=== PATIENT | male | born 1950 | race Caucasian/White ===

== ENCOUNTER 2020-12-14 09:56 | Outpatient (CLI) | payer BC, SELFPAY ==
--- NOTE | ~2020-12-14 | NM_ITS ---
EXAMINATION: NM alexei stress w perfusion DATE: 12/14/2020 12:37 INDICATION: Unspecified right bundle branch block. TECHNIQUE: Rest images were obtained following intravenous administration of 9.1 mCi Tc99m tetrofosmi n (Myoview). The patient was infused intravenously with Lexiscan (regadenoson). Then, 31.1 mCi Tc99m tetrofosmin (Myoview) was administered intravenously, and supine and prone stress images were obtaine d. Data was reconstructed into short axis and horizontal and vertical long axis SPECT images. Gated S PECT images were also obtained. COMPARISON: Myocardial perfusion imaging 03/14/2017 FINDINGS: There is no definite reversible or fixed perfusion abnormality to suggest ischemia or infar ction. There is no segmental wall motion abnormality. Left ventricular ejection fraction measures 6 1%. IMPRESSION: 1. No definite ischemia or infarct. 2. Normal left ventricular ejection fraction measuring 61%. Reviewed, dictated and finalized at location A. H INSPECTOR
--- NOTE | 2020-12-14 11:20 | EST_ITS ---
Patient Info Name: Dakotah Carlson Age: 70 years : 1950 Gender: Male Ht: 69 in Wt: 210 lbs BSA: 2.18 m2 Exam Date: 12/14/2020 11:26 AM Exam Location: [facility] Stress Patient Status: Outpatient Admit Date: 12/14/2020 Staff Ordering Physician: Alta Hernandez PAC Attending Provider: Alta Hernandez Exercise Technologist: Mathew Perez RDCS, RT Exercise Physician: Carlos Marin DO Exam Type: CA stress alexei w NM Study Info A regadenoson stress test was performed. Summary 1. 1. Negative lexiscan stress test for ischemic ST changes by ECG criteria. 2. 2. Stable hemodynamics throughout the test. 3. 3. Nuclear scan to follow and will be reported separately. Please correlate with it. 4. 4. Patient informed of the above results. Protocol: Lexiscan Stress ECG Details Stage: REST Duration (min): 3 min : 29 sec HR (bpm): 62 SBP (mmHg): 136 DBP (mmHg): 87 Stage: REST Duration (min): 5 min : 25 sec HR (bpm): 62 SBP (mmHg): 136 DBP (mmHg): 87 Stage: STAGE 1 Duration (min): 1 min : 0 sec HR (bpm): 70 SBP (mmHg): 128 DBP (mmHg): 94 Stage: RECOVERY Duration (min): 1 min : 0 sec HR (bpm): 74 SBP (mmHg): 128 DBP (mmHg): 94 Stage: RECOVERY Duration (min): 2 min : 0 sec HR (bpm): 71 SBP (mmHg): 128 DBP (mmHg): 94 Stage: RECOVERY Duration (min): 3 min : 0 sec HR (bpm): 67 SBP (mmHg): 131 DBP (mmHg): 91 Stage: RECOVERY Duration (min): 3 min : 19 sec HR (bpm): 69 SBP (mmHg): 131 DBP (mmHg): 91 Rest HR: 62 bpm Peak HR: 75 bpm Rest Sys BP: 136 mmHg Peak Sys BP: 131 mmHg Max Pred HR: 151 bpm % Max Pred HR: 50 % Target HR: 128 bpm Max RPP: 9,825 bpm*mmHg Termination Reason: Completed protocol Cardiac Symptoms: Shortness of breath Total Time: 1 min : 0 sec Rest Castillo BP: 87 mmHg Peak Castillo BP: 91 mmHg Total Dose: 0.4 mg Resting ECG Sinus rhythm with supraventricular bigeminy, RBBB, cannot r/o septal infarct, ST-T wave abnormality in anterolat/inf leads- consider ischemia. Stress ECG No ST changes. Arrhythmias None. Report Signatures
== END 2020-12-14 09:57 | disposition home or self-care (01) ==
PROVIDERS: Family Provider Family Medicine; PCP Family Medicine; Visit Provider Physician Assistant Medical
DX: I45.10 Unspecified right bundle-branch block (principal); R07.89 Other chest pain
CPT/HCPCS: 78452; 93017; A9502; J2785

== ENCOUNTER 2021-03-16 09:02 | Outpatient (CLI) | payer BC, SELFPAY ==
--- NOTE | ~2021-03-16 | US_ITS ---
US abdomen complete EXAMINATION: US Abdomen Complete INDICATION: Thrombocytopenia PROCEDURE: Realtime High Resolution abdomen ultrasound. COMPARISON: No prior studies for comparison FINDINGS: Gallbladder within normal limits. No gallstones, pericholecystic fluid, gallbladder wall t hickening or biliary dilatation. Common bile duct measures 5 mm. Liver echotexture within normal limits without focal mass. Pancreas within normal limits. Pancreati c tail is obscured by bowel gas. Spleen is borderline size measuring 12.8 cm. There are calcified gr anulomas of the spleen.. Renal echotexture is within normal limits bilaterally without hydronephrosis , contour deforming mass or renal stone. Right kidney measures 11.1 cm. Left kidney measures 11.9 cm. There is a 1.9 cm left renal cyst. Visualized aspects of the aorta and IVC are within normal limits. Portal vein is patent. No sonograph ic Perez's sign indicated by the technologist. IMPRESSION: 1: Left renal cyst measuring 1.9 cm. Reviewed, dictated and finalized at location B.
== END 2021-03-16 09:03 | disposition home or self-care (01) ==
PROVIDERS: PCP Family Medicine; Visit Provider Internal Medicine Hematology & Oncology
DX: D69.59 Other secondary thrombocytopenia (principal); N28.1 Cyst of kidney, acquired
CPT/HCPCS: 76700

== ENCOUNTER 2021-08-31 10:14 | Outpatient (CLI) | payer BC, SELFPAY ==
[2021-08-31 10:45] LABS: Basophils Percent Auto 0.4 % (0.2-1.2); Eosinophils Absolute Auto 0.1 K/mm3 (0-0.3); Eosinophils Percent Auto 2.4 % (0-4.4); Hemoglobin 15.7 g/dL (14.0-18.0); Immature Granulocyte Absolute 0.01 K/mm3 (0.00-0.031); Immature Granulocyte Percent A 0.2 % (0-0.5); Immature Platelet Fraction Pct 5.6 % (0.9-11.2); Lymphocytes Absolute Auto 0.91 K/mm3 (0.9-3.2); Lymphocytes Percent Auto 16.7 % (18.3-44.2); Mean Corpuscular HGB Conc 35.7 g/dl (32-36); Mean Corpuscular Hemoglobin 33.3 pg (26-34); Mean Corpuscular Volume 93.4 fl (80-100); Mean Platelet Volume 10.8 fl (7.4-10.4); Monocytes Absolute Auto 0.4 K/mm3 (0.1-0.6); Monocytes Percent Auto 8.1 % (2.6-8.5); Neutrophils Absolute Auto 3.9 K/mm3 (1.3-6.7); Neutrophils Percent Auto 72.2 % (45.5-73.1); Platelet Count Result 116 k/mm3 (150-375); Red Blood Count 4.71 M/mm3 (4.6-6.20); Red Cell Distribution Width 12.6 % (11.5-14.5); White Blood Count 5.4 K/mm3 (4.5-10.0)
[2021-08-31 10:59] LABS: Alanine Aminotransferase 35 U/L (4-50); Albumin Level 4.4 g/dL (3.5-5.1); Alkaline Phosphatase 59 U/L (38-126); Anion Gap 9 mmol/L (8-16); Aspartate Amino Transferase 34 U/L (17-59); Bilirubin,Total 0.7 mg/dL (0.2-1.3); Blood Urea Nitrogen 21 mg/dL (9-20); Carbon Dioxide 24 mmol/L (22-30); Chloride 109 mmol/L (98-107); Estimated Glomerular Filt Rate > 60; Glucose 99 mg/dL (65-110); Potassium 4.2 mmol/L (3.4-5.0); Sodium 142 mmol/L (137-145)
[2021-08-31 12:01] LABS: Folic Acid 16.6 ng/mL (2.76->20)
== END 2021-08-31 10:15 | disposition home or self-care (01) ==
PROVIDERS: PCP Family Medicine; Visit Provider Internal Medicine Hematology & Oncology
DX: D69.59 Other secondary thrombocytopenia (principal)
CPT/HCPCS: 36415; 80053; 82607; 82746; 85025; 85055

== ENCOUNTER 2021-12-30 08:47 | Outpatient (CLI) | payer BC, MEDICARE, SELFPAY ==
--- NOTE | ~2021-12-30 | XR_ITS ---
EXAMINATION: XR chest 2V DATE: 12/30/2021 09:09 INDICATION: Cough, unspecified. TECHNIQUE: Frontal and lateral views of the chest were obtained. COMPARISON: CT abdomen and pelvis 05/10/2006 FINDINGS: There are airspace opacities in the lower lung zones. No pleural effusion or pneumothorax. Cardiomegaly is noted. IMPRESSION: 1. Airspace opacities in the lower lung zones, consistent with atelectasis versus pneumonia. 2. Cardiomegaly. Reviewed, dictated and finalized at location E. 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 Airspace opacities in the lower lung zones, consistent with atelectasis vers us pneumonia. 2. Cardiomegaly.
== END 2021-12-30 08:48 | disposition home or self-care (01) ==
LOC: ANHIMG 08:56
PROVIDERS: PCP Family Medicine; Visit Provider Nurse Practitioner Family
DX: R05.9 Cough, unspecified (principal); J40 Bronchitis, not specified as acute or chronic; R91.8 Other nonspecific abnormal finding of lung field; I51.7 Cardiomegaly
CPT/HCPCS: 71046

== ENCOUNTER 2022-01-09 08:49 | Outpatient (CLI) | payer MEDICARE, SELFPAY ==
--- NOTE | ~2022-01-09 | XR_ITS ---
XR chest 2V 01/09/2022 08:57 Indication: Pneumonia. Procedure: 2 view chest Comparison: 12/30/2021 Findings: There are bibasilar infiltrates, unchanged from prior examination which may represent atele ctasis/scarring versus pneumonia. No pleural effusion. Heart size normal. No pneumothorax. No acute o sseous abnormality. Impression: 1: Stable bilateral infiltrates of the lower lungs, atelectasis/scarring versus pneumonia. Reviewed, dictated and finalized at location B. 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
== END 2022-01-09 08:50 | disposition home or self-care (01) ==
LOC: ANHIMG 08:50
PROVIDERS: PCP Family Medicine; Visit Provider Nurse Practitioner Family
DX: J18.9 Pneumonia, unspecified organism (principal); R91.8 Other nonspecific abnormal finding of lung field
CPT/HCPCS: 71046

== ENCOUNTER 2022-07-19 08:22 | Outpatient (CLI) | payer MEDICARE, SELFPAY ==
[2022-07-19 08:41] LABS: Hematocrit 47.1 % (42.0-52.0); Hemoglobin 16.5 g/dL (14.0-18.0); Mean Corpuscular Hemoglobin 32.7 pg (26-34); Mean Corpuscular Volume 93.3 fl (80-100); Mean Platelet Volume 10.7 fl (7.4-10.4); Platelet Count Result 108 k/mm3 (150-375); Red Blood Count 5.05 M/mm3 (4.6-6.20); Red Cell Distribution Width 13.4 % (11.5-14.5); White Blood Count 5.5 K/mm3 (4.5-10.0)
[2022-07-19 08:53] LABS: Alanine Aminotransferase 30 U/L (6-50); Albumin Level 4.1 g/dL (3.5-5.1); Alkaline Phosphatase 54 U/L (38-126); Anion Gap 10 mmol/L (8-16); Aspartate Amino Transferase 28 U/L (17-59); Bilirubin,Total 0.7 mg/dL (0.2-1.3); Blood Urea Nitrogen 24 mg/dL (9-20); Calcium 8.9 mg/dL (8.4-10.2); Carbon Dioxide 25 mmol/L (22-30); Chloride 107 mmol/L (98-107); Cholesterol 172 mg/dL (0-200); Estimated Glomerular Filt Rate > 60; Glucose 115 mg/dL (65-110); HDL Direct 44 mg/dL; Potassium 4.7 mmol/L (3.4-5.0); Sodium 142 mmol/L (137-145); Triglycerides 103 mg/dL (<150)
[2022-07-19 09:03] LABS: LDL Cholesterol Direct 100 mg/dL
[2022-07-19 09:23] LABS: Prostate Specific Antigen 1.8 ng/mL (< OR = 4.0)
[2022-07-19 09:32] LABS: Free T4 Free Thyroxine 1.07 ng/mL (0.78-2.19); Vitamin D 25 Hydroxy 43.8 ng/mL
== END 2022-07-19 08:23 | disposition home or self-care (01) ==
LOC: ANHLAB 08:24
PROVIDERS: PCP Family Medicine; Visit Provider Nurse Practitioner Family
DX: E78.2 Mixed hyperlipidemia (principal); G47.33 Obstructive sleep apnea (adult) (pediatric); I10 Essential (primary) hypertension; R73.09 Other abnormal glucose; E56.9 Vitamin deficiency, unspecified; Z12.5 Encounter for screening for malignant neoplasm of prostate
CPT/HCPCS: 36415; 80053; 80061; 82306; 84153; 84439; 84443; 85027; 85055; G0103

== ENCOUNTER 2022-10-08 16:24 | Outpatient (CLI) | payer MEDICARE, SELFPAY ==
--- NOTE | ~2022-10-08 | XR_ITS ---
XR chest 2V 10/08/2022 16:38 Indication: Cough and congestion. Procedure: 2 view chest Comparison: 01/09/2022 Findings: Heart size normal. No focal air space disease, pulmonary edema, pleural effusion or suspect ed pneumothorax. No acute osseous abnormality. Impression: 1: No acute cardiopulmonary disease. Reviewed, dictated and finalized at location B. ER STRAIGHTENER Impression: 1: No acute cardiopulmonary disease.
== END 2022-10-08 16:25 | disposition home or self-care (01) ==
LOC: ANHIMG 16:26
PROVIDERS: PCP Family Medicine; Visit Provider Nurse Practitioner Family
DX: R05.9 Cough, unspecified (principal)
CPT/HCPCS: 71046

== ENCOUNTER 2023-08-29 12:42 | Outpatient (CLI) | payer MEDICARE, SELFPAY ==
[2023-08-29 12:59] LABS: Basophils Percent Auto 0.3 % (0.2-1.2); Eosinophils Absolute Auto 0.2 K/mm3 (0-0.3); Eosinophils Percent Auto 2.4 % (0-4.4); Hemoglobin 16.9 g/dL (14.0-18.0); Immature Granulocyte Absolute 0.01 K/mm3 (0.00-0.031); Immature Granulocyte Percent A 0.2 % (0-0.5); Immature Platelet Fraction Pct 5.1 % (0.9-11.2); Lymphocytes Percent Auto 32.3 % (18.3-44.2); Mean Corpuscular HGB Conc 35.2 g/dl (32-36); Mean Corpuscular Hemoglobin 32.7 pg (26-34); Mean Corpuscular Volume 92.8 fl (80-100); Mean Platelet Volume 10.7 fl (7.4-10.4); Monocytes Absolute Auto 0.8 K/mm3 (0.1-0.6); Monocytes Percent Auto 12.3 % (2.6-8.5); Neutrophils Absolute Auto 3.3 K/mm3 (1.3-6.7); Neutrophils Percent Auto 52.5 % (45.5-73.1); Platelet Count Result 113 k/mm3 (150-375); Red Blood Count 5.17 M/mm3 (4.6-6.20); Red Cell Distribution Width 12.7 % (11.5-14.5); White Blood Count 6.2 K/mm3 (4.5-10.0)
[2023-08-29 13:03] LABS: Blood Urea Nitrogen 19 mg/dL (8-26); Carbon Dioxide 25 mmol/L (22-30); Chloride 104 mmol/L (98-109); Estimated Glomerular Filt Rate > 60; Glucose 99 mg/dL (70-105); Ionized Calcium (POC) 1.18 mmol/L (1.11-1.31); Potassium 4.5 mmol/L (3.5-4.9); Sodium 140 mmol/L (138-146)
[2023-08-29 16:49] LABS: Alanine Aminotransferase 41 U/L (6-50); Albumin Level 4.3 g/dL (3.5-5.1); Alkaline Phosphatase 58 U/L (38-126); Anion Gap 6 mmol/L (8-16); Aspartate Amino Transferase 36 U/L (17-59); Bilirubin,Total 1.2 mg/dL (0.2-1.3); Blood Urea Nitrogen 19 mg/dL (9-20); Calcium 9.1 mg/dL (8.4-10.2); Carbon Dioxide 24 mmol/L (22-30); Chloride 107 mmol/L (98-107); Estimated Glomerular Filt Rate > 60; Glucose 96 mg/dL (65-110); Potassium 4.5 mmol/L (3.4-5.0); Sodium 137 mmol/L (137-145)
== END 2023-08-29 12:43 | disposition home or self-care (01) ==
LOC: ANHLAB 12:44
PROVIDERS: PCP Family Medicine; Visit Provider Internal Medicine Hematology & Oncology
DX: D69.59 Other secondary thrombocytopenia (principal)
CPT/HCPCS: 36415; 80047; 80053; 85025; 85055

== ENCOUNTER 2024-06-02 13:28 | Outpatient (CLI) | payer MEDICARE, SELFPAY ==
--- NOTE | ~2024-06-02 | US_ITS ---
EXAMINATION: US venous doppler [facility] DATE: 06/02/2024 14:12 INDICATION: Right lower limb pain TECHNIQUE: Grayscale ultrasound images without and with compression and Doppler ultrasound images of the bilateral lower extremity veins were obtained. COMPARISON: None. FINDINGS: The visualized portions of right common femoral vein, profunda (deep) femoral vein, femoral vein, pop liteal vein, posterior tibial veins, peroneal veins, gastrocnemius vein and greater saphenous vein ou tflow are patent. The visualized portions of left common femoral vein, profunda femoral vein, femoral vein, popliteal v ein, posterior tibial veins, peroneal veins, gastrocnemius vein and greater saphenous vein outflow ar e patent. IMPRESSION: 1. No deep venous thrombosis in either lower limb. Reviewed, dictated and finalized at location A.
== END 2024-06-02 13:29 | disposition home or self-care (01) ==
PROVIDERS: PCP Family Medicine
DX: M79.661 Pain in right lower leg (principal)
CPT/HCPCS: 93970

== ENCOUNTER 2024-08-10 14:37 | Outpatient (CLI) | payer MEDICARE, SELFPAY ==
--- NOTE | ~2024-08-10 | XR_ITS ---
XR chest 2V Ordering provider: Alta Hernandez, HETAL History: 74 years Male with . J40 - Bronchitis, not specified as acute or chronic . Comparison: October 08, 2022 FINDINGS: MEDIASTINUM: The cardiac silhouette is not enlarged. LUNGS: No effusions or pneumothorax. Opacification in the right lower lobe. Early bronchopneumonia is not excluded. Follow-up advised. OTHER: No free air under the diaphragm. IMPRESSION: Opacification in the right lower lobe. Early bronchopneumonia is not excluded. Follow-up advised. Reviewed, dictated and finalized at location A.
== END 2024-08-10 14:38 | disposition home or self-care (01) ==
LOC: ANHIMG 14:39
PROVIDERS: PCP Family Medicine; Visit Provider Physician Assistant Medical
DX: J40 Bronchitis, not specified as acute or chronic (principal)
CPT/HCPCS: 71046

== ENCOUNTER 2024-08-28 15:06 | Outpatient (CLI) | payer MEDICARE, SELFPAY ==
--- NOTE | ~2024-08-28 | XR_ITS ---
CHEST RADIOGRAPH, PA AND LATERAL CLINICAL HISTORY: J18.9 - Pneumonia, unspecified organism . COMPARISON: 08/10/2024 TECHNIQUE: PA and lateral views of the chest. FINDINGS The cardiomediastinal silhouette is unremarkable. The lungs are clear. Visualized osseous structures and soft tissues are unremarkable. IMPRESSION: No focal infiltrate or effusion. Reviewed, dictated and finalized at location A.
== END 2024-08-28 15:07 | disposition home or self-care (01) ==
LOC: ANHIMG 15:10
PROVIDERS: PCP Family Medicine; Visit Provider Physician Assistant Medical
DX: J18.9 Pneumonia, unspecified organism (principal)
CPT/HCPCS: 71046

== ENCOUNTER 2024-09-08 03:20 | Day surgery (SDC) | payer MEDICARE, SELFPAY ==
[2024-08-26 09:12] VITALS: BMI 30.2
[2024-09-08 07:59] VITALS: BP 142/79; PULSE 66; RESP 18; TEMP 36; O2SAT 97; BMI 30.5
[2024-09-08] MEDS: LACTATED RINGERS 1,000 ML 150 ML IV CONT (08:06)
--- NOTE | 2024-09-08 08:26 | WPDANESEPPF ---
Anes - Initial Pre Proc Eval Procedure: Operation Date: 09/08/24 09:00 Proposed Procedures p Screening Colonoscopy - Yoel Strauss MD Date/Time: 09/08/24 08:26 Surgeon: Yoel Strauss MD Pre Op Diagnosis: neoplasm screening Patient Data Age: 74 Gender: M Height: 1.75 m Weight: 93.9 kg Last Vital Signs Temp 36.0 C L 09/08/24 07:59 Pulse 66 09/08/24 07:59 Resp 18 09/08/24 07:59 BP 142/79 H 09/08/24 07:59 Pulse Ox 97 09/08/24 07:59 O2 Del Method Room Air 09/08/24 07:59 Allergies Allergy/AdvReac Type Severity Reaction Status Date / Time No Known Allergies Allergy Verified 09/08/24 07:57 Home Medications Medication Instructions Recorded Confirmed Type latanoprost 0.005 % eye drops 1 drop ophthalmic (eye) DAILY 09/23/19 09/08/24 History brimonidine 0.2 %-timolol 0.5 % 1 drp EACH EYE BID 03/09/24 09/08/24 History eye drops levothyroxine 88 mcg tablet 88 mcg PO DAILY #90 tabs 03/14/24 09/08/24 Rx tamsulosin 0.4 mg capsule See Rx Instructions .Route 03/23/24 09/08/24 Rx .COMPLEX #90 caps metoprolol succinate 100 mg 100 mg PO DAILY #90 tabs 04/27/24 09/08/24 Rx tablet,extended release 24 hr ezetimibe 10 mg tablet See Rx Instructions .Route 07/27/24 09/08/24 Rx .COMPLEX #90 tabs albuterol sulfate 90 mcg/actuation 2 inh inhalation Q4H PRN shortness 08/29/24 09/08/24 Rx aerosol inhaler of breath or wheezing #8.5 grams Patient hx anesthesia problems: none Family hx anesthesia problems: none Results Review: All pre-operative results and documents have been reviewed as part of the pre-operative evaluation. [facility] Past Medical History Medical History Arthralgia BMI 29.0-29.9,adult BMI 31.0-31.9,adult BMI 32.0-32.9,adult BMI greater than 30 Hypertension Hypothyroid Right wrist fracture Swollen abdomen Visual loss, bilateral Surgical History Surgical History History of hemorrhoidectomy Hx of colonoscopy Family History Family History Mother Diabetes mellitus Family history of cardiovascular disease Heart disease Alzheimer disease Father Aneurysm Sibling , 17 years old. Dirty heroin needle. No problems noted. Social History Social History Smoking status: Never smoker Second hand tobacco smoke exposure: No Alcohol intake: current Drinks per week: 6 Alcohol use details: 6 PACK A WEEK Substance use: never Substance use type: does not use Do You Feel Safe in your Home?: Yes Lack of Transportation: No Lack of Food: Never True Current Housing: I Have Housing Concerned About Future Housing: No Difficulty Paying Gas/Electric Bills: No Difficulty Paying for Meds: No Currently Unemployed: No Education: High School Diploma/GED Difficulty w/ Childcare or Family Care: No Living arrangements: with family Occupation/Education: retired 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 Gender identity (if verbalized by the patient): Male Spiritual care concerns: No Anes - Eval Final PreProcedure Day of Procedure 09/08/24 08:26 Patient weight: obese Heart: regular rate and rhythm Lungs: clear to auscultation Airway: Mallampati scale class II Neurological: alert and oriented Last oral intake: >/= 8 hours ASA classification: III Emergent: no Anesthetic plan: proceed Anesthesia type and monitoring: general GIVS and standard monitoring Results Review: All pre-operative results and documents have been reviewed as part of the pre-operative evaluation. Informed Consent: The patient's anesthetic plan and its attendant risks and benefits were discussed with the patient/family/POA. Questions were solicited and answ
--- NOTE | 2024-09-08 08:30 | PM.HPGS ---
History of Present Illness History of Present Illness Consent: Risks, benefits, and alternatives have been discussed and questions answered. Patient agrees to proceed with procedure. Chief complaint: neoplasm screening Narrative: Dakotah Carlson is a 74 year old male here for screening colonoscopy, last one about 9 years ago Review of Systems Review of Systems: All systems reviewed & are unremarkable except as noted in HPI and below PMFSH Past Medical History Medical History (Updated 09/08/24 @ 08:31 by Yoel Strauss MD) Arthralgia BMI 29.0-29.9,adult BMI 31.0-31.9,adult BMI 32.0-32.9,adult BMI greater than 30 Colon cancer screening Hypertension Hypothyroid Right wrist fracture Swollen abdomen Visual loss, bilateral Surgical History Surgical History History of hemorrhoidectomy Hx of colonoscopy Family History Family History Mother Diabetes mellitus Family history of cardiovascular disease Heart disease Alzheimer disease Father Aneurysm Sibling , 17 years old. Dirty heroin needle. No problems noted. Social History Social History Smoking status: Never smoker Second hand tobacco smoke exposure: No Alcohol intake: current Drinks per week: 6 Alcohol use details: 6 PACK A WEEK Substance use: never Substance use type: does not use Do You Feel Safe in your Home?: Yes Lack of Transportation: No Lack of Food: Never True Current Housing: I Have Housing Concerned About Future Housing: No Difficulty Paying Gas/Electric Bills: No Difficulty Paying for Meds: No Currently Unemployed: No Education: High School Diploma/GED Difficulty w/ Childcare or Family Care: No Living arrangements: with family Occupation/Education: retired 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 Gender identity (if verbalized by the patient): Male Spiritual care concerns: No Meds Home Medications and Allergies Home Medications Medication Instructions Recorded Confirmed Type latanoprost 0.005 % eye drops 1 drop ophthalmic (eye) DAILY 09/23/19 09/08/24 History brimonidine 0.2 %-timolol 0.5 % 1 drp EACH EYE BID 03/09/24 09/08/24 History eye drops levothyroxine 88 mcg tablet 88 mcg PO DAILY #90 tabs 03/14/24 09/08/24 Rx tamsulosin 0.4 mg capsule See Rx Instructions .Route 03/23/24 09/08/24 Rx .COMPLEX #90 caps metoprolol succinate 100 mg 100 mg PO DAILY #90 tabs 04/27/24 09/08/24 Rx tablet,extended release 24 hr ezetimibe 10 mg tablet See Rx Instructions .Route 07/27/24 09/08/24 Rx .COMPLEX #90 tabs albuterol sulfate 90 mcg/actuation 2 inh inhalation Q4H PRN shortness 08/29/24 09/08/24 Rx aerosol inhaler of breath or wheezing #8.5 grams Allergies Allergy/AdvReac Type Severity Reaction Status Date / Time No Known Allergies Allergy Verified 09/08/24 07:57 Vital Signs Vital Signs - 24 hr 09/08/24 07:59 Temperature 96.8 F L Pulse Rate 66 Respiratory Rate 18 Blood Pressure 142/79 H Pulse Oximetry 97 Oxygen Delivery Room Air Exam Const: General: comfortable and no acute distress HENMT: Face/Nose/Sinus: Normal nares present Eyes: General: appearance normal, both eyes and all related structures Neck: Neck: no JVD Resp: Auscultation: clear to auscultation bilaterally Cardio: Rate: regular rate Rhythm: regular rhythm GI: Inspection: non-distended GI Palp: Yes Soft to palpation Skin: General skin exam: normal color Neuro: General: gait normal Speech: normal speech Extrem: General: normal to inspection Psych: Mental Status: mental status grossly normal Assessment and Plan Assessment and plan (1) Colon cancer screening: Code(s): Z12.11 - Encounter for screening for malignant neoplasm
[2024-09-08 08:45] VITALS: BP 92/57; PULSE 72; RESP 14; O2SAT 94
[2024-09-08 08:55] VITALS: BP 102/56; PULSE 66; RESP 22; O2SAT 97
[2024-09-08 09:05] VITALS: BP 111/77; PULSE 69; RESP 17; O2SAT 97
== END 2024-09-08 09:23 | disposition home or self-care (01) ==
PROVIDERS: PCP Family Medicine; Visit Provider Internal Medicine Gastroenterology
PROC: 0DJD8ZZ Inspection of Lower Intestinal Tract, Via Natural or Artificial Opening Endoscopic (ICD-10-PCS; CPT 45378; principal; 2024-09-08 09:00)
DX: Z12.11 Encounter for screening for malignant neoplasm of colon (principal); D12.2 Benign neoplasm of ascending colon; K63.5 Polyp of colon; K57.30 Diverticulosis of large intestine without perforation or abscess without bleeding; I10 Essential (primary) hypertension; E03.9 Hypothyroidism, unspecified; E66.9 Obesity, unspecified; Z68.30 Body mass index [BMI] 30.0-30.9, adult; Z79.51 Long term (current) use of inhaled steroids; Z98.890 Other specified postprocedural states; Z82.49 Family history of ischemic heart disease and other diseases of the circulatory system
CPT/HCPCS: 45380; 45385; 88305; J2704; J7120

== ENCOUNTER 2024-12-02 13:13 | Outpatient (CLI) | payer MEDICARE, SELFPAY ==
--- NOTE | ~2024-12-02 | CT_ITS ---
EXAMINATION: CT diagnostic chest wo con DATE: 12/02/2024 15:04 INDICATION: R05.3 - Chronic cough TECHNIQUE: Computed tomography (CT) of the chest was performed without intravenous contrast. Addition al 3D reconstructions utilizing coronal maximum intensity projection (MIP) were performed. Automated exposure control and iterative reconstruction technique were employed. The dose-length product was 42 6.60 mGy-cm. COMPARISON: None FINDINGS: Small region of tree-in-bud opacity in the right middle lobe suspicious for focal bronchiolitis. Mild mosaic attenuation with groundglass opacities in the bilateral upper and lower lobes most likely dep endent atelectasis with associated small regions of more lucent subsegmental air trapping related to small airway disease. No pulmonary edema, pleural effusion or pneumothorax. Mild cardiomegaly. Small amount of atherosclerotic coronary artery catheter location. No pericardial effusion. Thoracic aorta is normal in caliber. No pathologically enlarged thoracic lymphadenopathy. Single small calcification in the left hepatic lobe and several small splenic calcific lesions consistent with old granulomatou s disease. A few bilateral <2 mm nonobstructing renal stones. Chronic mild anterior wedging at L1. Th ere is moderate lower cervical and mild thoracic and upper lumbar spondylosis. IMPRESSION: 1. Small region of tree-in-bud opacity in the right middle lobe consistent with bronchiolitis with en dobronchial spread of disease. 2. Cardiomegaly. Reviewed, dictated and finalized at location B. 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 Small region of tree-in-bud opacity in the right middle lobe consistent with bronchiolitis with endobronchial spread of disease. 2. Cardiomegaly.
== END 2024-12-02 13:14 | disposition home or self-care (01) ==
PROVIDERS: PCP Family Medicine; Visit Provider Nurse Practitioner Family
DX: R05.3 Chronic cough (principal); J40 Bronchitis, not specified as acute or chronic; I51.7 Cardiomegaly; R91.8 Other nonspecific abnormal finding of lung field
CPT/HCPCS: 71250